=== PATIENT | female | born 1985 | race Caucasian/White ===

== ENCOUNTER → 2023-11-14 08:39 | Outpatient (REF) | payer OTHER, SELFPAY | LOC: RCS 08:39 | PROVIDERS: ATTENDING PHYSICIAN Internal Medicine; FAMILY PHYSICIAN Student in an Organized Health Care Education/Training Program | DX: R00.2 Palpitations (principal) | CPT/HCPCS: 93225; 93226 ==

== ENCOUNTER → 2024-02-10 12:22 | Outpatient (REF) | payer OTHER, SELFPAY | LOC: MRI 3T 12:22 | PROVIDERS: ATTENDING PHYSICIAN Physician Assistant Surgical; FAMILY PHYSICIAN Internal Medicine; REFERRING PHYSICIAN Orthopaedic Surgery Hand Surgery | DX: M25.512 Pain in left shoulder (principal) | CPT/HCPCS: 73221 ==

== ENCOUNTER → 2024-09-27 07:12 | Outpatient (REF) | payer OTHER, SELFPAY | LOC: HWRAD 07:12 | PROVIDERS: ATTENDING PHYSICIAN Specialist; FAMILY PHYSICIAN Student in an Organized Health Care Education/Training Program | DX: R16.2 Hepatomegaly with splenomegaly, not elsewhere classified (principal) | CPT/HCPCS: 76700 ==

== ENCOUNTER → 2025-01-21 08:18 | Outpatient (REF) | payer OTHER, SELFPAY | LOC: HWRAD 08:18 | PROVIDERS: ATTENDING PHYSICIAN Obstetrics & Gynecology Gynecology; FAMILY PHYSICIAN Student in an Organized Health Care Education/Training Program | DX: N95.0 Postmenopausal bleeding (principal) | CPT/HCPCS: 76830; 76856 ==